=== PATIENT | female | born 2000 | race Caucasian/White ===

== ENCOUNTER 2022-07-30 23:42 | Emergency (ER) | payer BC, SELFPAY ==
[2022-07-30 23:48] VITALS: BP 125/92; PULSE 112; RESP 16; TEMP 36.9; O2SAT 98; BMI 31.1
--- NOTE | 2022-07-30 23:54 | W.ED.HA ---
HPI - Headache General: Chief Complaint: Headache Stated Complaint: Headache Time Seen by Provider: 07/30/22 23:53 History of Present Illness: 21-year-old female comes in today with severe migraine. Patient reports that usually she has significant pain and discomfort with her migraines but has not been able to get good control of them. Patient is scheduled to see a neurologist in February. Patient reports this migraine has just persisted and she is tired of it. Patient appears nontoxic. Patient appears in moderate discomfort. Associated symptoms: Reports nausea; Deny chest pain or rash Review of Systems General: Reports: 10 or more systems reviewed and unremarkable except in HPI and below Card: Denies: chest pain Resp: Denies: dyspnea GI: Reports: nausea : Denies: difficulty voiding Skin/Breast: Denies: rash Neuro: Reports: headache(s) (Usual migraine) Physical Exam Const: COMMON NORMALS: alert HENMT: COMMON NORMALS: normocephalic HEAD & SCALP: normocephalic Neck/C-Spine: COMMON NORMALS: no meningeal signs Resp: COMMON NORMALS: normal respiratory effort Cardio: COMMON NORMALS: regular rate RATE: regular rate Extremity: COMMON NORMALS: no pedal edema Neuro: SENSORIUM/ORIENTATION: Yes alert MENINGEAL SIGNS: Yes no meningeal signs Skin: COMMON NORMALS: turgor normal GENERAL SKIN EXAM: turgor normal Course Vital Signs: Vital signs: Vital Signs Temperature 98.4 F 07/30/22 23:48 Pulse Rate 90 07/31/22 01:28 Respiratory Rate 16 07/31/22 01:28 Blood Pressure 143/76 07/31/22 01:28 Pulse Oximetry 99 07/31/22 01:28 Oxygen Delivery Me thod 07/30/22 23:48 MDM - Headache Medical Decision Making 21-year-old female comes in today with complaints of usual migraine that she is unable to tolerate. On exam patient appears nontoxic. Patient is alert and oriented. No focal neural deficits. No edema is noted in the extremities. Differential diagnosis includes malingering, migraine headache, other headache syndrome. Patient was treated with migraine cocktail of dexamethasone 6 mg, 15 mg ketorolac, and 10 mg of Reglan. Patient reported a improvement of headache from a level 10-7. Patient was then dosed with 1 mg of DHE with full resolution of headache. Patient was discharged home will follow-up with neurologist. manager pediatric was requested to assist with the follow-up appointment due to persistent daily migraines. Patient agreed to plan. Discharge Plan Discharge Patient Disposition: Home Clinical Impression: Migraine Condition: Stable Discharge Orders: Discharge ED (Routine); Ordered 07/31/22 Ordered By: Ferdinand Cullen Discharge Diet: Usual diet Discharge Activity: Increase activity as tolerated Patient Instructions: Migraine Headache (ED) Activity Restrictions/Additional Instructions: Home and rest. Drink plenty of fluids. Continue with routine medications as directed. Follow-up with primary care as needed. Case management will contact you regarding a follow-up appointment for our neurologist. Return to ER for new concerns. Coding Level of Care Code ED Screwhead Stoner And Polisher for Ankur Breen
[2022-07-31] MEDS: ketorolac 30 mg/mL INJ 15 MG IVP (00:13)
[2022-07-31] MEDS: dexamethasone 10 mg/mL INJ 6 MG IVP (00:13)
[2022-07-31] MEDS: metoclopramide 5 mg/mL SDV 2 mL 10 MG IVP (00:13)
[2022-07-31] MEDS: sodium chloride 0.9% 1,000 ML 999 ML IV (00:14)
[2022-07-31] MEDS: dihydroergotamine 1 mg/mL Inj IVP (01:16)
[2022-07-31 01:28] VITALS: BP 143/76; PULSE 90; RESP 16; O2SAT 99
--- NOTE | 2022-07-31 11:23 | DCPLANNER ---
Addendum entered by Zahida Lopez 09/17/22 08:16: Patient had a follow up appointment scheduled with neurology - patient did attend appointment. Addendum entered by Zahida Lopez 08/04/22 08:17: Patient has a follow up appointment scheduled for Thursday, September 15, 2022 at 1:[address] Batista at neurology. Original Note: manager epic had message to schedule a follow up appointment for patient with neurology. manager epic sent patients information to the front office staff at neurology. Patients information will be printed and reviewed. Clinic will call patient with appointment information.
--- NOTE | 2022-08-09 10:20 | DCPLANNER ---
leasing manager called patient due to no primary care physician - no answer at this time
== END 2022-07-31 01:30 | disposition home or self-care (01) ==
PROVIDERS: Emergency Provider Nurse Practitioner Family
DX: G43.909 Migraine, unspecified, not intractable, without status migrainosus (principal)
CPT/HCPCS: 96361; 96374; 96375; 99284; J1100; J1110; J1885; J2765; J7030

== ENCOUNTER → 2023-12-16 13:51 | Outpatient (BNVA) | payer BC, SELFPAY | PROVIDERS: PCP Registered Nurse; Visit Provider Emergency Medicine | DX: J02.9 Acute pharyngitis, unspecified (principal) | CPT/HCPCS: 87071; 87880 ==

== ENCOUNTER 2023-12-31 08:40 | Emergency (ER) | payer BC, SELFPAY ==
--- NOTE | 2023-12-31 08:47 | W.ED.HA ---
HPI - Headache General: Chief Complaint: Headache Stated Complaint: Migraine since yesterday Time Seen by Provider: 12/31/23 08:45 History of Present Illness: 23-year-old female presents emergency room with a migraine that began yesterday. Patient has history of migraines in the past although she usually does not have them bad enough that she has to come to the emergency room. She has a history of pseudotumor cerebri which she does see a neurologist for. She is on acetazolamide. She failed Topamax previously. She tried several [id number] medications. In the past she has used triptans although they have not been very effective. She had also tried Botox injections which was also not effective. She last seen her neurologist a few months ago. They have not made any recent medication changes or done any recent imaging. No head trauma. She has some photophobia and oral phobia. Reviewing the previous neurologist note she has responded well to DHE in the past. She told me that different triptans she has tried in the past on home medications she did not respond well to. Associated symptoms: Deny chest pain, fever(s) or rash Related Data Home Medications Medication Instructions Recorded Confirmed amitriptyline 75 mg tablet 75 mg PO DAILY 09/15/22 12/16/23 Previous Rx's Medication Instructions Recorded promethazine-DM 6.25 mg-15 mg/5 mL 10 ml PO Q6H PRN cough #473 mL 12/16/23 oral syrup Allergies Allergy/AdvReac Type Severity Reaction Status Date / Time No Known Allergies Allergy Verified 12/16/23 13:39 Review of Systems Const: Denies: fever(s) or chills Card: Denies: chest pain Resp: Denies: dyspnea GI: Denies: abdominal pain : Denies: dysuria, urinary frequency or urinary urgency Musc: Denies: neck pain or back pain Skin/Breast: Denies: rash Neuro: Reports: headache(s) PFSH ED PFSH: Social History Smoking and tobacco/nicotine status: unknown if used tobacco/nicotine Alcohol intake: never Substance/Drug Use: never Physical Exam Const: GENERAL APPEARANCE: cooperative ORIENTATION/CONSCIOUSNESS: Yes awake, Yes oriented to person, Yes oriented to place and Yes oriented to time HENMT: COMMON NORMALS: normocephalic, atraumatic and hearing grossly normal bilaterally HEAD & SCALP: normocephalic and atraumatic Resp: COMMON NORMALS: normal respiratory effort, No retractions, No use of accessory muscles and clear to auscultation bilaterally AUSCULTATION: clear to auscultation bilaterally Cardio: COMMON NORMALS: regular rate, regular rhythm and No murmurs present (Cardio) RATE: regular rate RHYTHM: regular rhythm GI: COMMON NORMALS: Soft to palpation and No hepatosplenomegaly present AUSCULTATION: Yes normoactive bowel sounds PALPATION: Yes Soft to palpation, No Tenderness to palpation present (GI), No Guarding due to palpation present (GI) and Yes No hepatosplenomegaly present Extremity: COMMON NORMALS: normal to inspection, capillary refill normal, no clubbing, cyanosis or edema, no calf tenderness and no pedal edema Neuro: SENSORIUM/ORIENTATION: Yes oriented to person, Yes oriented to place and Yes oriented to time Skin: COMMON NORMALS: no rashes or lesions noted GENERAL SKIN EXAM: no rashes or lesions noted Course Vital Signs: Vital signs: Vital Signs Temperature 98.0 F 12/31/23 09:11 Pulse Rate 100 12/31/23 11:28 Respiratory Rate 16 12/31/23 11:28 Blood Pressure 126/88 12/31/23 11:28 Pulse Oximetry 96 12/31/23 11:28 Oxygen Delivery Me thod Room Air 12/31/23 11:11 MDM - Headache Medical Decision Making Improved with medications given. Although she only got a portion of the morphine ordered because it caused nausea. She reports her headache is down to a 2 out of 10 from a 10 out of 10. She has had chronic longstanding problems. Encouraged her to continue to follow-up with her doctor. We did give her Lasix in the emergency room. Advised her since she had not taken her acetazolamide yet today she might skip today's dose and resume tomorrow if she has recurrence of headache go ahead and take the acetazolamide. Medical Records I reviewed the patient's medical records. No radiology studies performed this visit Discharge Plan Discharge Patient Disposition: Home Clinical Impression: Migraine, Pseudotumor cerebri Condition: Stable Prescriptions: No Action promethazine-DM 6.25-15 mg/5 mL syrup 10 ml PO Q6H PRN (Reason: cough) Qty: 473 0RF amitriptyline 75 mg tablet 75 mg PO DAILY Discharge Orders: Discharge ED (Routine); Ordered 12/31/23 Ordered By: Diego Grayson Referrals: Rick Hobson EDUCATION REPORTER [Primary Care Provider] - Discharge Diet: Advance as tolerated Discharge Activity: Increase activity as tolerated Patient Instructions: Opioid Safety, Pain Management Activity Restrictions/Additional Instructions: Thank you for choosing [facility] for your healthcare needs today. It is very important that you follow up as instructed or that you return to the Emergency Department should you have concerns or if your condition changes or worsens in any way. Follow-up with your neurologist as previously scheduled. If symptoms recur or any further problems return to the emergency room Coding Level of Care Code ED Bag Maker for Ankur Breen
[2023-12-31 08:50] VITALS: BP 143/97; PULSE 110; RESP 18; TEMP 36.8; O2SAT 98
[2023-12-31 09:11] VITALS: BP 143/97; PULSE 115; RESP 16; TEMP 36.7; O2SAT 97
[2023-12-31] MEDS: dexamethasone 10 mg/mL INJ IM (09:44)
[2023-12-31] MEDS: FUROsemide 10 mg/mL SDV 2mL 20 MG IVP (09:45)
[2023-12-31 09:47] VITALS: RESP 16
[2023-12-31] MEDS: morphine 4 mg/mL SDV 1 mL IVP (09:47)
[2023-12-31] MEDS: ketorolac 30 mg/mL INJ IVP (09:50)
[2023-12-31] MEDS: diphenhydrAMINE 50 mg/mL SDV 1mL IVP (09:52)
--- NOTE | 2023-12-31 09:59 | PC.NURSE ---
while administering morphine pt asked nurse to stop administration d/t side effects and nausea that occurred. notified
[2023-12-31] MEDS: ondansetron 2 mg/ML SDV 2 mL 4 MG IVP (10:16)
--- NOTE | 2023-12-31 10:38 | PC.NURSE ---
pt stated, My pain is better now. I would rate it a 6. after the zofran was given.
[2023-12-31 11:11] VITALS: BP 126/88; PULSE 100; RESP 16; O2SAT 97
[2023-12-31 11:28] VITALS: BP 126/88; PULSE 100; RESP 16; O2SAT 96
== END 2023-12-31 11:33 | disposition home or self-care (01) ==
PROVIDERS: Emergency Provider Family Medicine; PCP Registered Nurse
DX: G43.909 Migraine, unspecified, not intractable, without status migrainosus (principal); G93.2 Benign intracranial hypertension
CPT/HCPCS: 96372; 96374; 96375; 99284; J1100; J1200; J1885; J1940; J2270; J2405

== ENCOUNTER → 2025-01-15 11:56 | Outpatient (BNVA) | payer BC, SELFPAY | PROVIDERS: PCP Registered Nurse; Visit Provider Emergency Medicine | DX: R50.9 Fever, unspecified (principal) | CPT/HCPCS: 87400; 87426 ==

== ENCOUNTER 2025-02-11 21:44 | Emergency (ER) | payer BC, SELFPAY ==
[2025-02-11 21:52] VITALS: BP 119/78; PULSE 79; RESP 16; TEMP 36.7; O2SAT 100; BMI 36.6
--- NOTE | 2025-02-11 23:18 | USR_ITS ---
PROCEDURE INFORMATION: Exam: US Duplex Artery or Vein of the Abdominal and/or Reproductive Organs, Limited Ovaries Exam date and time: 02/11/2025 11:38 PM Age: 24 years old Clinical indication: complicated by abdominal or pelvic pain; Generalized abdominal pain; First trimester (<14 weeks 0 days); Gestational age or lmp: 6w 0d by lmp; ; G1-p0 with cramping, one episode of spotting now resolved; Additional info: Cramping, TECHNIQUE: Imaging protocol: Real-time duplex ultrasound scan of the arterial or venous flow with ray scale, color Doppler flow and spectral waveform analysis with image documentation. Limited duplex exam focused on the ovaries. Duplex exam was performed to evaluate for torsion and other vascular conditions. COMPARISON: No relevant prior studies available. FINDINGS: Right ovary/adnexa: The right ovary is poorly characterized on this exam, likely obscured secondary to positioning and bowel gas. Left ovary/adnexa: Confirmed left ovarian blood flow. Normal arterial inflow on spectral sonography. PROCEDURE INFORMATION: Exam: US First Trimester, Transabdominal and US , Transvaginal Exam date and time: 02/11/2025 11:38 PM Age: 24 years old Clinical indication: complicated by abdominal or pelvic pain; Generalized abdominal pain; First trimester (<14 weeks 0 days); Gestational age or lmp: 6w 0d by lmp; ; G1-p0 with cramping, one episode of spotting now resolved; Additional info: Cramping, LABS AND CLINICAL REPORTS: Last menstrual period start date: 12/31/2024 Gestational age (Established): 6 w 0 d Estimated due date (Established): 10/07/2025 TECHNIQUE: Imaging protocol: Real-time transabdominal obstetrical ultrasound of the maternal pelvis and a first trimester , less than 14 weeks 0 days, with image documentation. Transvaginal imaging was used for better evaluation of the fetus, adnexa, and/or cervix. COMPARISON: No relevant prior studies available. FINDINGS: GESTATION: Gestation: 2 intrauterine gestations are visualized. Chronicity is ambiguous at this time. One gestational sac is noted. Gestation 1. pole is visualized. Gestation 2. pole is obscured and poorly characterized. Two yolk sacs are identified. Embryo/ cardiac activity (BPM): Gestation 1 demonstrates heart rate of 117 bpm. No definitive heart tones for of the 2nd gestation are noted secondary to visualization. Extra-embryonic membranes/Placenta: Unremarkable. No subchorionic bleed. Amniotic/Chorionic fluid: Amniotic and extra-amniotic fluid are normal for gestational age. BIOMETRY: Gestational age (AUA): 6 w 1 d Estimated due date (AUA): 10/06/2025 Mountain rump length (CRL): 3.9 mm 4 gestation 1. EGA (CRL) is 6 w 1 d MATERNAL: Uterus: Uterus measures 9.51 cm x 5.36 cm x 5.59 cm. Cervix: Unremarkable. Endocervical canal is closed. Right ovary/adnexa: Obscured by lack of adequate acoustic window. Left ovary/adnexa: Left ovary measures 4.3 cm x 2 cm x 2.7 cm. Left ovarian volume is 12.2 mL. Intraperitoneal space: No intraperitoneal free fluid. Other findings: The findings were verbally communicated via telephone conference with FRANCSE SIMS at 12:45 AM CDT on 02/12/2025. The findings were acknowledged and understood. US/US OB <= 14 weeks fetus [id number] IMPRESSION: 1. Nonvisualized right ovary. No evidence of adnexal mass. 2. Arterial blood flow confirmed to the left ovary. No torsion. IMPRESSION: Findings consistent with twin . Viable intrauterine of the 1st gestation as above with estimated gestational age of 6 weeks 1 day and heart tone measuring up to 117 bpm. The 2nd gestation is poorly characterized without definitive pole measurement or notable heart tones given positioning. Recommend economic research assistant referral. Additional follow-up pelvic sonogram in 2 weeks to evaluate viability is recommended.
--- NOTE | 2025-02-11 23:59 | ED_ITS ---
HPI - 2 General: Chief complaint: Vaginal Bleeding Stated complaint: 6 wks preg bleeding and severe cramping Time Seen by Provider: 02/11/25 23:18 History of Present Illness: Patient is a 24-year-old female, para 1 0, 6 weeks gestation, presents with cramping,. Light bleeding, that is now resolved. She is not aware of products of conception. Last sexual intercourse was yesterday. She has not had any heavy lifting, however she is a [employer] in a [employer]. Date of Last Menstrual Period: 12/31/24 Associated symptoms: Reports headache(s); Deny abdominal pain, nausea or vomiting Related Data Allergies Allergy/AdvReac Type Severity Reaction Status Date / Time morphine Allergy Intermediate vomiting Verified 01/15/25 11:49 Review of Systems 2 Const: Denies: fever(s), chills, body aches, change in appetite, change in weight or fatigue Eyes: Denies: change in vision, blurry vision, eye discomfort, eye discharge or eye redness ENMT: Denies: odynophagia, hoarseness, oral sores, ear or mastoid pain, ear discharge or sinus pain Card: Denies: chest pain, palpitations, irregular heart rhythm or edema Resp: Reports: non-productive cough (slight, occasional) and chest congestion (mild); Denies: dyspnea, productive cough, wheezing, stridor or pain on inspiration GI: Denies: abdominal pain, nausea, vomiting, diarrhea, constipation or change in bowel habits : Reports: vaginal bleeding (Limited); Denies: flank pain or difficulty voiding Musc: Denies: joint pain, joint swelling, joint redness, joint warmth, joint stiffness, limited range of motion or muscle weakness Skin/Breast: Denies: rash, pruritus, erythema or sores Neuro: Reports: headache(s); Denies: numbness in extremities, weakness in extremities, sensory changes, difficulty walking, confusion, Slurred speech present or difficulty communicating thoughts Psych: Denies: anxiety or depression Endo: Denies: polyuria, polydipsia or tired all the time PFSH ED 2 PFSH: Social History Smoking and tobacco/nicotine status: never used tobacco/nicotine Alcohol intake: never Substance/Drug Use: never Female Reproductive History: Date of last menstrual period: 12/31/24 Physical Exam 2 Const: COMMON NORMALS: no acute distress, average body habitus, patient oriented x3, no limitations, healthy appearing and alert EXAM LIMITATIONS: no altered mental status GENERAL APPEARANCE: cooperative, comfortable, well kempt and well developed; not in distress and not frail appearing ORIENTATION/CONSCIOUSNESS: Yes awake, Yes oriented to person, Yes oriented to place and Yes oriented to time HENMT: COMMON NORMALS: normocephalic, atraumatic, external ears normal, EAC's normal, TM's normal bilaterally, Normal external nose present and moist oral mucous membranes HEAD & SCALP: normal to inspection, normocephalic and atraumatic FACE & SINUS: normal facial exam; no sinus tenderness NOSE: Normal external nose present EXTERNAL EAR: Yes external ears normal EXTERNAL AUDITORY CANAL: EAC's normal TYMPANIC MEMBRANE: TM's normal bilaterally MOUTH: Normal oral and palatal mucosa present THROAT: posterior oropharynx normal Eye: COMMON NORMALS: Equal, round and reactive pupils present, EOMs intact bilaterally, conjunctivae normal and no scleral icterus GENERAL EYE: a ppearance normal, both eyes and all related structures VISUAL ACUITY: Yes acuity normal ALIGNMENT: Yes alignment normal PERIORBITAL: periorbital findings normal EYELID: eyelids normal CONJUNCTIVA: Yes conjunctivae normal PUPIL: Yes Equal, round and reactive pupils present Neck/C-Spine: COMMON NORMALS: full ROM, no lymphadenopathy, no meningeal signs and no JVD GENERAL: Yes normal visual inspection, Yes trachea midline and No anterior neck swelling CERVICAL SPINE: Yes cervical ROM normal Resp: COMMON NORMALS: normal respiratory effort, No retractions, No use of accessory muscles and clear to auscultation bilaterally EFFORT & INSPECTION: Yes able to speak in complete sentences, Yes symmetric chest movement and No respiratory distress AUSCULTATION: clear to auscultation bilaterally and lung sounds not diminished Cardio: COMMON NORMALS: no JVD, regular rate and regular rhythm PALPATION: normal PMI RATE: regular rate RHYTHM: regular rhythm GI: COMMON NORMALS: Normal to inspection, nondistended, normoactive bowel sounds present, Soft to palpation and non-tender PALPATION: Yes Soft to palpation : COMMON NORMALS: Yes no CVA tenderness BLADDER/KIDNEY EXAM: Yes no CVA tenderness Back/Pelvis: COMMON NORMALS: no CVA tenderness Neuro: COMMON NORMALS: patient oriented x3 SENSORIUM/ORIENTATION: Yes alert, Yes oriented to person, Yes oriented to place and Yes oriented to time MENINGEAL SIGNS: Yes no meningeal signs CRANIAL NERVES: Yes CN normal except as noted SPEECH: speech normal GAIT: Yes Normal gait present MOTOR EXAM: 5/5 motor strength present throughout Psych: APPEARANCE: Yes well kempt ATTITUDE: Yes calm and Yes engaged Skin: COMMON NORMALS: no rashes or lesions noted, no wounds and turgor normal GENERAL SKIN EXAM: no rashes or lesions noted, elasticity normal, turgor normal and no erythema Course 2 Vital Signs: Vital signs: Vital Signs Temperature 98.1 F 02/11/25 21:52 Pulse Rate 83 02/12/25 00:29 Respiratory Rate 15 02/12/25 00:29 Blood Pressure 114/81 02/12/25 00:29 Pulse Oximetry 96 02/12/25 00:29 Oxygen Delivery Me thod Room Air 02/11/25 21:52 MDM - OB/Uterine Contractions Medical Decision Making Patient is a 24-year-old female with one-time history of vaginal bleeding that stopped. Cause is unclear. There is twin gestation. Discussed with radiologist. Recommend repeat ultrasound in 2 weeks. Discussed with patient and her . They will follow-up with Dr. Lucero, exercise pelvic rest, increase noncaffeinated beverage, and no lifting. Medical Records I reviewed the patient's medical records. Lab Data I reviewed the patient's lab results. 02/12/25 00:45 02/12/25 00:45 Radiology Impressions Ultrasound 02/11/25 23:18 IMPRESSION: 1. Nonvisualized right ovary. No evidence of adnexal mass. 2. Arterial blood flow confirmed to the left ovary. No torsion. IMPRESSION: Findings consistent with twin . Viable intrauterine of the 1st gestation as above with estimated gestational age of 6 weeks 1 day and heart tone measuring up to 117 bpm. The 2nd gestation is poorly characterized without definitive pole measurement or notable heart tones given positioning. Recommend car salesperson referral. Additional follow-up pelvic sonogram in 2 weeks to evaluate viability is recommended. Laboratory Results WBC 11.33 10^3/uL (3.29-11.43) 02/12/25 00:45 RBC 4.65 10^6/uL (3.85-5.65) 02/12/25 00:45 Hgb 12.50 g/dL (11.27-16.99) 02/12/25 00:45 Hct 41.4 % (36-47) 02/12/25 00:45 MCV 89.0 fl (85-98) 02/12/25 00:45 MCH 26.9 pg (27-33) L 02/12/25 00:45 MCHC 30.2 g/dL (30-55) 02/12/25 00:45 RDW 14.0 % (12.1-15.1) 02/12/25 00:45 Plt Count 361 10^3/cmm (157-399) 02/12/25 00:45 MPV 10.0 fL (7.4-10.4) 02/12/25 00:45 Neut % (Auto) 64.4 % 02/12/25 00:45 Lymph % (Auto) 27.4 % 02/12/25 00:45 Crawford % (Auto) 6.4 % 02/12/25 00:45 Eos % (Auto) 1.2 % 02/12/25 00:45 Baso % (Auto) 0.4 % 02/12/25 00:45 Neut # (Auto) 7.30 10^3/uL (1.8-7.7) 02/12/25 00:45 Lymph # (Auto) 3.1 10^3/uL (0.8-4.8) 02/12/25 00:45 Crawford # (Auto) 0.7 10^3/uL (0.2-0.9) 02/12/25 00:45 Eos # (Auto) 0.1 10^3/uL (0.0-0.8) 02/12/25 00:45 Baso # (Auto) 0.1 10^3/uL (0.0-0.1) 02/12/25 00:45 Nucleated RBC % (auto) 0 % 02/12/25 00:45 Nucleated RBCs # 0.0 /100WBC 02/12/25 00:45 Sodium 139 mmol/L (136-145) 02/12/25 00:45 Potassium 3.7 mmol/L (3.5-5.1) 02/12/25 00:45 Chloride 103 mmol/L (98-107) 02/12/25 00:45 Carbon Dioxide 21 mmol/L (22-29) L 02/12/25 00:45 Anion Gap 18.7 (5-19) 02/12/25 00:45 BUN 6 mg/dL (6-20) 02/12/25 00:45 Creatinine 0.4 mg/dL (0.5-0.9) L 02/12/25 00:45 GFR Calculation 197.8 mL/min (90-130) H 02/12/25 00:45 Glucose 98 mg/dL (65-115) 02/12/25 00:45 Calculated Osmolality 286 mOsm/kg (285-295) 02/12/25 00:45 Calcium 9.5 mg/dL (8.5-10.5) 02/12/25 00:45 Total Bilirubin 0.2 mg/dL (0.15-1.2) 02/12/25 00:45 AST 14 U/L (0-32) 02/12/25 00:45 ALT 10 U/L (0-33) 02/12/25 00:45 Alkaline Phosphatase 65 U/L (35-105) 02/12/25 00:45 Total Protein 7.2 g/dL (6.6-8.7) 02/12/25 00:45 Albumin 4.5 g/dL (3.5-5.2) 02/12/25 00:45 Globulin 2.7 g/dL (1.3-4.6) 02/12/25 00:45 Amorphous Sediment Not Reportable 02/12/25 01:36 Blood Type O Positive 02/12/25 00:45 Rho(D) Type Rh positive 02/12/25 00:45 All radiology interpretation(s) finalized by discharge Discharge Plan Discharge Patient Disposition: Home Clinical Impression: Threatened Condition: Stable Discharge Orders: Discharge ED (Routine); Ordered 02/12/25 Ordered By: Jennifer Cherry Referrals: Willy Lucero MD [Physician, SPEECH LANGUAGE PATHOLOGIST PRN] - 1-3 days Referral Note: hcg f/up repeat US in 2 weeks Twin gestation Clinical Impression: Threatened Rick Hobson, TORPEDO WORKER [Primary Care Provider] Discharge Diet: Usual diet Discharge Activity: Limit activity as instructed Patient Instructions: Threatened Miscarriage (ED), Patient Portal & Antonia Instructions Activity Restrictions/Additional Instructions: - No lifting over half gallon of milk - No intercourse/sex/tampons. Complete pelvic rest - Increase noncaffeinated/fluid intake - Return here if you have further issues - Call Dr. Lucero's office tomorrow for follow-up. You will need follow-up hCG level, and follow-up ultrasound in 2 weeks. Thank you for choosing [facility] for your healthcare needs today. You have been screened and evaluated and felt safe for discharge. Health conditions do change or evolve sometimes and as such it is important that you follow up with your Primary Doctor to be re checked, 3-5 days is a general good time frame for follow up. You are always welcome to return to the ED for re assessment if your symptoms are worsening or you have new concerns Stand Alone Forms: Work/School Release Print Language: Surinamese Coding Level of Care Code ED Group Burner Machine for Ankur Breen
[2025-02-12 00:29] VITALS: BP 114/81; PULSE 83; RESP 15; O2SAT 96
[2025-02-12 01:02] LABS: Hematocrit 41.4 % (36-47); Hemoglobin 12.50 g/dL (11.27-16.99); Mean Corpuscular HGB Conc 30.2 g/dL (30-55); Mean Corpuscular Hemoglobin 26.9 pg (27-33); Mean Corpuscular Volume 89.0 fl (85-98); Nucleated Red Blood Cells % 0 %; Platelet Count 361 10^3/cmm (157-399); Red Blood Count 4.65 10^6/uL (3.85-5.65); White Blood Count 11.33 10^3/uL (3.29-11.43)
[2025-02-12 01:19] LABS: Alanine Aminotransferase 10 U/L (0-33); Albumin Level 4.5 g/dL (3.5-5.2); Alkaline Phosphatase 65 U/L (35-105); Anion Gap 18.7 (5-19); Aspartate Amino Transferase 14 U/L (0-32); Blood Urea Nitrogen 6 mg/dL (6-20); Calcium 9.5 mg/dL (8.5-10.5); Carbon Dioxide 21 mmol/L (22-29); Chloride 103 mmol/L (98-107); Creatinine Clr Calc Pharmacy 229.1052; Globulin 2.7 g/dL (1.3-4.6); Glucose 98 mg/dL (65-115); Osmolality Calculated 286 mOsm/kg (285-295); Potassium 3.7 mmol/L (3.5-5.1); Sodium 139 mmol/L (136-145); Total Protein 7.2 g/dL (6.6-8.7)
[2025-02-12 01:42] LABS: Glucose Urine UA Negative (Normal); Nitrate Urine Negative (Negative); Specific Gravity, Urine 1.019 (1.005-1.030)
[2025-02-12 01:44] LABS: Add Urine Microscopic? YES
[2025-02-12 02:19] VITALS: BP 105/69; PULSE 89; O2SAT 96
== END 2025-02-12 02:20 | disposition home or self-care (01) ==
PROVIDERS: Emergency Provider Physician Assistant; PCP Registered Nurse
DX: O20.0 Threatened abortion (principal); Z3A.01 Less than 8 weeks gestation of pregnancy
CPT/HCPCS: 36415; 76801; 80053; 81001; 84702; 85025; 86900; 99284

== ENCOUNTER → 2025-02-16 10:47 | Outpatient (BNVA) | payer BC, SELFPAY | PROVIDERS: PCP Registered Nurse; Visit Provider Nurse Practitioner Women's Health | DX: O20.0 Threatened abortion (principal) | CPT/HCPCS: 84315; 84702 ==

== ENCOUNTER 2025-02-27 18:11 | Emergency (ER) | payer BC, SELFPAY ==
[2025-02-27 18:14] VITALS: BP 122/89; PULSE 97; RESP 14; TEMP 36.4; O2SAT 98; BMI 36.6
[2025-02-27 18:50] LABS: Glucose Urine UA Negative (Normal); Nitrate Urine Negative (Negative); Specific Gravity, Urine 1.030 (1.005-1.030)
[2025-02-27 18:55] LABS: Add Urine Microscopic? YES; Universal Test for UA Present (0)
--- NOTE | 2025-02-27 18:55 | W.ED.NAVMDI ---
HPI - Nausea/Vomiting/Diarrhea General: Chief complaint: Nausea/Vomiting/Diarrhea Stated complaint: Sick since Sunday, 8 wks preg Time Seen by Provider: 02/27/25 18:19 History of Present Illness: Patient is a 24-year-old female at 8 weeks gestation with twins (confirmed by ultrasound) who presents with nausea and vomiting since Sunday (4 days duration). She reports being unable to keep food or fluids down and has only urinated 5-6 times since symptom onset. She denies fever or abdominal cramping. She reports constipation with no bowel movement for 3 days, causing abdominal discomfort. Patient states this does not feel like typical morning sickness. She denies diarrhea. Her was sick last weekend with upper respiratory symptoms, but patient denies any respiratory symptoms herself. Related Data Home Medications ?Medication ?Instructions ?Recorded ?Confirmed docosahexaenoic acid 200 mg mg PO 02/16/25 02/16/25 capsule ( DHA) Previous Rx's ?Medication ?Instructions ?Recorded metoclopramide HCl 5 mg tablet 5 mg PO DAILY #60 tabs 02/16/25 (Reglan) ondansetron 4 mg disintegrating 4 mg PO Q6H PRN nausea and 02/27/25 tablet vomiting #30 tabs Allergies Allergy/AdvReac Type Severity Reaction Status Date / Time morphine Allergy Intermediate vomiting Verified 02/27/25 18:18 onabotulinumtoxinA (From Allergy Intermediate ALGY-Bliste Verified 02/27/25 18:18 Botox) r PFSH ED PFSH: Medical History (Updated 02/27/25 @ 22:07 by Kev Day DO) No pertinent past medical history neghx: htn, dm, thyroid, dvt/pe PCP: [facility] (Updated 02/24/25 @ 16:43 by Vanessa Reed NP) No pertinent past surgical history Family History Grandfather Breast cancer Stroke Social History Smoking and tobacco/nicotine status: former use of tobacco/nicotine Alcohol intake: never Substance/Drug Use: never Physical Exam Const: COMMON NORMALS: no acute distress GENERAL APPEARANCE: cooperative; not ill appearing and not frail appearing HENMT: COMMON NORMALS: normocephalic, atraumatic and Normal external nose present HEAD & SCALP: normocephalic and atraumatic FACE & SINUS: normal facial exam and face symmetric NOSE: Normal external nose present Eye: COMMON NORMALS: Equal, round and reactive pupils present and EOMs intact bilaterally PUPIL: Yes Equal, round and reactive pupils present Neck/C-Spine: GENERAL: Yes trachea midline Chest: CHEST: Yes Symmetrical chest wall rise Resp: COMMON NORMALS: normal respiratory effort, No retractions, No use of accessory muscles and clear to auscultation bilaterally AUSCULTATION: clear to auscultation bilaterally Cardio: COMMON NORMALS: regular rate and regular rhythm RATE: regular rate RHYTHM: regular rhythm GI: COMMON NORMALS: Normal to inspection, nondistended, normoactive bowel sounds present Extremity: COMMON NORMALS: no pedal edema Neuro: CYNTHIA COMA SCALE: document GCS findings [place] coma scale eye opening: Spontaneous [place] coma scale verbal response: Orientated [place] coma scale motor response: Obey commands [place] coma scale total score: 15 SENSORY EXAM: Yes extremities (intact) Psych: COMMON NORMALS: speech normal SPEECH: Yes normal speech Skin: COMMON NORMALS: no rashes or lesions noted GENERAL SKIN EXAM: no rashes or lesions noted Course Vital Signs: Vital signs: Vital Signs Temperature 98.0 F 02/27/25 22:20 Pulse Rate 78 02/27/25 22:20 Respiratory Rate 17 02/27/25 22:20 Blood Pressure 108/68 02/27/25 22:20 Pulse Oximetry 100 02/27/25 22:20 Oxygen Delivery Me thod Room Air 02/27/25 22:03 MDM - Nausea/Vomiting/Diarrhea Medical Decision Making 24-year-old female. She feels much improved after 2 L bolus here and Zofran. No longer nauseated. White blood cell count is 13.7. Bicarbonate level is 20. Potassium 3.4. Lipase is normal at 14. Mild liver enzyme elevation is AST is 37, ALT of 68. Alk phos is 66 however. CRP is 6.5. Liver enzymes were normal a couple weeks ago. Because of this, gallbladder ultrasound was completed with normal-appearing liver and gallbladder no ductal dilatation. Serum quant is appropriate for gestational age given that she has twins. With improvement in her symptoms, she is stable for discharge. Will add Zofran to her regimen for now. She may alternate. Start with liquid diet and advance. Outpatient follow-up with her reproduction technician. Return for new or worsening symptoms. Lab Data 02/27/25 18:34 02/27/25 18:34 Radiology Impressions Gallbladder Ultrasound 02/27/25 19:59 IMPRESSION: No acute findings. Laboratory Results WBC 13.68 10^3/uL (3.29-11.43) H 02/27/25 18:34 RBC 5.00 10^6/uL (3.85-5.65) 02/27/25 18:34 Hgb 13.50 g/dL (11.27-16.99) 02/27/25 18:34 Hct 40.9 % (36-47) 02/27/25 18:34 MCV 81.8 fl (85-98) L 02/27/25 18:34 MCH 27.0 pg (27-33) 02/27/25 18:34 MCHC 33.0 g/dL (30-55) 02/27/25 18:34 RDW 13.4 % (12.1-15.1) 02/27/25 18:34 Plt Count 358 10^3/cmm (157-399) 02/27/25 18:34 MPV 10.6 fL (7.4-10.4) H 02/27/25 18:34 Neut % (Auto) 78.4 % 02/27/25 18:34 Lymph % (Auto) 15.9 % 02/27/25 18:34 [place] % (Auto) 5.3 % 02/27/25 18:34 Eos % (Auto) 0.1 % 02/27/25 18:34 Baso % (Auto) 0.1 % 02/27/25 18:34 Neut # (Auto) 10.71 10^3/uL (1.8-7.7) H 02/27/25 18:34 Lymph # (Auto) 2.2 10^3/uL (0.8-4.8) 02/27/25 18:34 [place] # (Auto) 0.7 10^3/uL (0.2-0.9) 02/27/25 18:34 Eos # (Auto) 0.0 10^3/uL (0.0-0.8) 02/27/25 18:34 Baso # (Auto) 0.0 10^3/uL (0.0-0.1) 02/27/25 18:34 Nucleated RBC % (auto) 0 % 02/27/25 18:34 Nucleated RBCs # 0.0 /100WBC 02/27/25 18:34 Sodium 137 mmol/L (136-145) 02/27/25 18:34 Potassium 3.4 mmol/L (3.5-5.1) L 02/27/25 18:34 Chloride 98 mmol/L (98-107) 02/27/25 18:34 Carbon Dioxide 20 mmol/L (22-29) L 02/27/25 18:34 Anion Gap 22.4 (5-19) H 02/27/25 18:34 BUN 8 mg/dL (6-20) 02/27/25 18:34 Creatinine 0.4 mg/dL (0.5-0.9) L 02/27/25 18:34 GFR Calculation 197.8 mL/min (90-130) H 02/27/25 18:34 Glucose 83 mg/dL (65-115) 02/27/25 18:34 Calculated Osmolality 281 mOsm/kg (285-295) L 02/27/25 18:34 Calcium 9.8 mg/dL (8.5-10.5) 02/27/25 18:34 Total Bilirubin 0.5 mg/dL (0.15-1.2) 02/27/25 18:34 AST 37 U/L (0-32) H 02/27/25 18:34 ALT 68 U/L (0-33) H 02/27/25 18:34 Alkaline Phosphatase 66 U/L (35-105) 02/27/25 18:34 C-Reactive Protein 6.5 mg/L (0.0-4.9) H 02/27/25 18:34 Total Protein 7.9 g/dL (6.6-8.7) 02/27/25 18:34 Albumin 4.5 g/dL (3.5-5.2) 02/27/25 18:34 Globulin 3.4 g/dL (1.3-4.6) 02/27/25 18:34 Lipase 14 U/L (13-60) 02/27/25 18:34 Ser , Semi-Qnt 900585.00 mIU/mL 02/27/25 18:34 Urine Color Dark yellow (Yellow) A 02/27/25 18:30 Urine Appearance Clear (CLEAR) 02/27/25 18:30 Urine pH 5.5 (5-7) 02/27/25 18:30 Ur Specific [place] 1.030 (1.005-1.030) 02/27/25 18:30 Urine Protein Trace (Negative) A 02/27/25 18:30 Urine Glucose (UA) Negative (Normal) 02/27/25 18:30 Urine Ketones 3+ (Negative) H 02/27/25 18:30 Urine Blood Negative (Negative) 02/27/25 18: Urine Nitrate Negative (Negative) 02/27/25 18: Urine Bilirubin 1+ (Negative) H 02/27/25 18:30 Urine Urobilinogen 1.0 mg/dL (Negative) 02/27/25 18:30 Ur Leukocyte Esterase Trace (Negative) A 02/27/25 18:30 Urine RBC 3-5 /hpf (0-2) 02/27/25 18:30 Urine WBC 6-10 /hpf (0-5) 02/27/25 18:30 Ur Squamous Epith Cells 0-5 /hpf (0-5) 02/27/25 18:30 Amorphous Sediment Not Reportable 02/27/25 18:30 Urine Bacteria Trace /hpf (NONE) 02/27/25 18:30 Hyaline Casts 7.01 /lpf 02/27/25 18:30 Urine Mucus 3+ /hpf 02/27/25 18:30 All radiology interpretation(s) finalized by discharge Discharge Plan Discharge Patient Disposition: Home Clinical Impression: Nausea and vomiting during Condition: Stable Prescriptions: New ondansetron 4 mg tablet,disintegrating 4 mg PO Q6H PRN (Reason: nausea and vomiting) Qty: 30 0RF No Action DHA 200 mg capsule PO metoclopramide HCl [Reglan] 5 mg tablet 5 mg PO DAILY Qty: 60 1RF Rx Instructions: take once daily Discharge Orders: Discharge ED (Routine); Ordered 02/27/25 Ordered By: Kev Day Referrals: Willy Lucero MD [Physician, MANUSCRIPT EDITOR] - 1-3 days Rick Hobson [employer] TE[employer]ER [Primary Care Provider] Patient Instructions: Nausea and Vomiting in (ED), Opioid Safety, Pain Management, Patient Portal & Antonia Instructions Activity Restrictions/Additional Instructions: Take the Zofran you were prescribed every 4 hours while awake for the first 24 hours whether you are nauseated or not. Then you may take it as needed. You may alternate this with the Reglan that you have. Start with a liquid diet for the first 12 hours. You may advance as tolerated if no vomiting. Return for any problems. Call your doctor Sunday for follow-up. They may have further suggestions. Print Language: Amharic Coding Level of Care Code ED Research Recruiter for Ankur Breen
[2025-02-27 18:58] LABS: Hematocrit 40.9 % (36-47); Hemoglobin 13.50 g/dL (11.27-16.99); Mean Corpuscular HGB Conc 33.0 g/dL (30-55); Mean Corpuscular Hemoglobin 27.0 pg (27-33); Mean Corpuscular Volume 81.8 fl (85-98); Nucleated Red Blood Cells % 0 %; Platelet Count 358 10^3/cmm (157-399); Red Blood Count 5.00 10^6/uL (3.85-5.65); White Blood Count 13.68 10^3/uL (3.29-11.43)
[2025-02-27 19:17] VITALS: BP 118/72; PULSE 71; RESP 16; TEMP 36.8; O2SAT 97
[2025-02-27] MEDS: ondansetron 2 mg/ML SDV 2 mL 8 MG IVP (19:24)
[2025-02-27 19:29] LABS: Alanine Aminotransferase 68 U/L (0-33); Albumin Level 4.5 g/dL (3.5-5.2); Alkaline Phosphatase 66 U/L (35-105); Anion Gap 22.4 (5-19); Aspartate Amino Transferase 37 U/L (0-32); Blood Urea Nitrogen 8 mg/dL (6-20); Calcium 9.8 mg/dL (8.5-10.5); Carbon Dioxide 20 mmol/L (22-29); Chloride 98 mmol/L (98-107); Creatinine Clr Calc Pharmacy 229.1052; Globulin 3.4 g/dL (1.3-4.6); Glucose 83 mg/dL (65-115); Lipase 14 U/L (13-60); Osmolality Calculated 281 mOsm/kg (285-295); Potassium 3.4 mmol/L (3.5-5.1); Sodium 137 mmol/L (136-145); Total Protein 7.9 g/dL (6.6-8.7)
--- NOTE | 2025-02-27 19:59 | USR_ITS ---
PROCEDURE INFORMATION: Exam: US Abdomen, Limited; Right Upper Quadrant Exam date and time: 02/27/2025 8:45 PM Age: 24 years old Clinical indication: Abdominal pain; Generalized; ; Additional info: Epigastric pain, elevated liver enzymes, TECHNIQUE: Imaging protocol: Real time ultrasound of the abdomen with image documentation. Limited exam focused on the right upper quadrant. COMPARISON: US OB <= 14 weeks fetus [id number] 02/11/2025 11:38 PM FINDINGS: Liver: 12.8 cm in length with homogeneous echogenicity. No masses. Hepatopetal flow in the portal vein. Gallbladder: Normal. No gallstones. There is no gallbladder wall thickening. Biliary ducts: Normal. Common bile duct is 4 mm in diameter. No stones. No dilation. Pancreas: Visualized pancreas is unremarkable. Right kidney: Normal. 11.7 cm in length. No mass. No hydronephrosis. US/US gall bladder [id number] IMPRESSION: No acute findings.
[2025-02-27 21:12] VITALS: BP 104/70; PULSE 62; RESP 17; O2SAT 96
[2025-02-27 22:03] VITALS: PULSE 61; RESP 17; O2SAT 100
[2025-02-27] MEDS: ondansetron hcl ODT 4 mg Tab 8 MG PO (22:19)
[2025-02-27 22:20] VITALS: BP 108/68; PULSE 78; RESP 17; TEMP 36.7; O2SAT 100
== END 2025-02-27 22:22 | disposition home or self-care (01) ==
PROVIDERS: Emergency Provider Emergency Medicine; PCP Registered Nurse
DX: O21.9 Vomiting of pregnancy, unspecified (principal); Z3A.08 8 weeks gestation of pregnancy; Z87.891 Personal history of nicotine dependence
CPT/HCPCS: 36415; 76705; 80053; 81001; 83690; 84702; 85025; 86140; 96361; 96374; 99284; J2405; J7030; Q0162

== ENCOUNTER → 2025-03-16 10:56 | Outpatient (BNVA) | payer BC, SELFPAY | PROVIDERS: PCP Registered Nurse; Visit Provider Nurse Practitioner Women's Health | DX: Z34.01 Encounter for supervision of normal first pregnancy, first trimester (principal) | CPT/HCPCS: 80307; 84315; 85025; 86592; 86762; 86803; 86850; 86900; 87086; 87340; 87491; 87591; 87661; 87806 ==

== ENCOUNTER → 2025-03-23 11:12 | Outpatient (BNVA) | payer BC, SELFPAY | PROVIDERS: PCP Registered Nurse; Visit Provider Nurse Practitioner Women's Health | DX: Z36.9 Encounter for antenatal screening, unspecified (principal); O20.8 Other hemorrhage in early pregnancy; O30.031 Twin pregnancy, monochorionic/diamniotic, first trimester; O41.8X19 Other specified disorders of amniotic fluid and membranes, first trimester, other fetus; Z3A.11 11 weeks gestation of pregnancy; Z3A.12 12 weeks gestation of pregnancy | CPT/HCPCS: 76801; 76802 ==

== ENCOUNTER → 2025-04-29 09:24 | Outpatient (BNVA) | payer BC, SELFPAY | PROVIDERS: PCP Registered Nurse; Visit Provider Obstetrics & Gynecology | DX: O30.001 Twin pregnancy, unspecified number of placenta and unspecified number of amniotic sacs, first trimester (principal); Z3A.17 17 weeks gestation of pregnancy | CPT/HCPCS: 82950; 84315 ==